=== PATIENT | female | born 1940 | race Caucasian/White ===

== ENCOUNTER 2017-11-20 18:20 | Observation (INO) | payer OTHER ==
[~2017-11-20] VITALS: Ht 167.6 cm; Wt 60.0 kg
[2017-11-20 18:44] VITALS: BP 169/82; PULSE 88; RESP 18; TEMP 98.5; O2SAT 96
[2017-11-20] MEDS ORDERED: SODIUM CHLOR 0.9% 1000 ML INJ 1,000 ML IV ONE (19:04)
--- NOTE | 2017-11-20 19:05 | PD ---
HPI Chief Complaint: Dizziness Time Seen by Provider: 18:57 Travel History International Travel<30 days: No Contact w/Intl Traveler<30days: No Traveled to known affect area: No History of Present Illness HPI 77-year-old female with no significant medical history presents to emergency department today for evaluation of acute onset dizziness, sensation like room spinning with associated headache that began at 3 PM today. Patient states since then any positional changes produce significant dizziness. At times she feels as though she may pass out. She states her headache began mild in the temporal region but has now extended across the frontal region of her head. She has been nauseous with position changes. Denies any other focal deficits or weakness. Patient denies any recent traumas. She has no other symptoms to report at this time. [facility] Past Medical History Cardiovascular Problems: Yes Hypertension: Yes Past Surgical History Other Surgery: Yes (cyst removal from wrist) Social History Alcohol Use: Yes Tobacco Use: No Substance Use: No Allergies-Medications (Allergen,Severity, Reaction): Coded Allergies: aspirin (Verified Allergy, Intermediate, 11/20/17) Reported Meds & Prescriptions Reported Meds & Active Scripts Active Active Prescriptions or Reported Medications Unobtainable Review of Systems Except as stated in HPI: all other systems reviewed are Neg Physical Exam Narrative GENERAL: Well-nourished elderly female patient, lying in bed in no acute distress. SKIN: Focused skin assessment warm/dry. HEAD: Atraumatic. Normocephalic. EYES: Pupils equal and round. No scleral icterus. No injection or drainage. ENT: No nasal bleeding or discharge. Mucous membranes pink and moist. NECK: Trachea midline. No JVD. CARDIOVASCULAR: Regular rate and rhythm. RESPIRATORY: No accessory muscle use. Clear to auscultation. Breath sounds equal bilaterally. GASTROINTESTINAL: Abdomen soft, non-tender, nondistended. Hepatic and splenic margins not palpable. MUSCULOSKELETAL: No obvious deformities. No clubbing. No cyanosis. No edema. NEUROLOGICAL: Awake and alert. No obvious cranial nerve deficits. Motor grossly within normal limits. Normal speech. PSYCHIATRIC: Appropriate mood and affect; insight and judgment normal. Data Data Last Documented VS Vital Signs Date Time Temp Pulse Resp B/P (MAP) Pulse Ox O2 Delivery O2 Flow Rate FiO2 11/20/17 21:19 100 18 163/92 (115) 11/20/17 18:44 98.5 96 Room Air Orders Orders Electrocardiogram (11/20/17 19:04) Complete Blood Count With Diff (11/20/17 19:04) Comprehensive Metabolic Panel (11/20/17 19:04) Ckmb (Isoenzyme) Profile (11/20/17 19:04) Troponin I (11/20/17 19:04) Act Partial Throm Time (Ptt) (11/20/17 19:04) Prothrombin Time / Inr (Pt) (11/20/17 19:04) Urinalysis - C+S If Indicated (11/20/17 19:04) Chest, Single Ap (11/20/17 19:04) Ct Brain W/O Iv Contrast(Rout) (11/20/17 19:04) Ecg Monitoring (11/20/17 19:) Iv Access Insert/Monitor (11/20/17 19:04) Oximetry (11/20/17 19:04) Sodium Chloride 0.9% Flush (Ns Flush) (11/20/17 19:15) Sodium Chlor 0.9% 1000 Ml Inj (Ns 1000 M (11/20/17 19:04) Urine Culture (11/20/17 19:26) Ceftriaxone Inj (Rocephin Inj) (11/20/17 20:15) Orthostatic Vital Signs (11/20/17 20:16) Labs Laboratory Tests Test 11/20/17 19:26 White Blood Count 4.5 TH/MM3 Red Blood Count 3.87 MIL/MM3 Hemoglobin 13.5 GM/DL Hematocrit 40.8 % Mean Corpuscular Volume 105.5 FL Mean Corpuscular Hemoglobin 35.0 PG Mean Corpuscular Hemoglobin Concent 33.2 % Red Cell Distribution Width 14.3 % Platelet Count 192 TH/MM3 Mean Platelet Volume 8.1 FL Neutrophils (%) (Auto) 75.9 % Lymphocytes (%) (Auto) 15.3 % Monocytes (%) (Auto) 7.4 % Eosinophils (%) (Auto) 0.9 % Basophils (%) (Auto) 0.5 % Neutrophils # (Auto) 3.4 TH/MM3 Lymphocytes # (Auto) 0.7 TH/MM3 Monocytes # (Auto) 0.3 TH/MM3 Eosinophils # (Auto) 0.0 TH/MM3 Basophils # (Auto) 0.0 TH/MM3 CBC Comment DIFF FINAL Differential Comment Prothrombin Time 9.8 SEC Prothromb Time International Ratio 1.0 RATIO Activated Partial Thromboplast Time 20.5 SEC Urine Color DARK-YELLOW Urine Turbidity HAZY Urine pH 6.0 Urine Specific [place] 1.019 Urine Protein 30 mg/dL Urine Glucose (UA) NEG mg/dL Urine Ketones NEG mg/dL Urine Occult Blood NEG Urine Nitrite POS Urine Bilirubin NEG Urine Urobilinogen LESS THAN 2.0 MG/DL Urine Leukocyte Esterase LARGE Urine RBC 10 /hpf Urine WBC /hpf Urine WBC Clumps MOD Urine Squamous Epithelial Cells 5 /hpf Urine Bacteria FEW /hpf Urine Hyaline Casts 24 /lpf Urine Mucus FEW /lpf Microscopic Urinalysis Comment CULTURE INDICATED Blood Urea Nitrogen 11 MG/DL Creatinine 0.75 MG/DL Random Glucose 114 MG/DL Total Protein 6.3 GM/DL Albumin 2.8 GM/DL Calcium Level 9.0 MG/DL Alkaline Phosphatase 121 U/L Aspartate Amino Transf (AST/SGOT) 59 U/L Alanine Aminotransferase (ALT/SGPT) 47 U/L Total Bilirubin 0.3 MG/DL Sodium Level 145 MEQ/L Potassium Level 3.4 MEQ/L Chloride Level 106 MEQ/L Carbon Dioxide Level 30.9 MEQ/L Anion Gap 8 MEQ/L Estimat Glomerular Filtration Rate 75 ML/MIN Total Creatine Kinase 23 U/L Troponin I LESS THAN 0.02 NG/ML MDM Medical Decision Making Medical Screen Exam Complete: Yes Emergency Medical Condition: Yes Medical Record Reviewed: Yes Differential Diagnosis Near syncope versus syncope versus urosepsis versus TIA versus CVA versus electrolyte abnormality Narrative Course 77-year-old female presents to emergency department for evaluation of acute onset dizziness today. Patient appears without distress. Neuro exam is nonfocal. However any position changes elicits significant dizziness and nausea. EKG is reviewed by my attending physician without acute concern. Laboratory Tests Test 11/20/17 19:26 White Blood Count 4.5 TH/MM3 Red Blood Count 3.87 MIL/MM3 Hemoglobin 13.5 GM/DL Hematocrit 40.8 % Mean Corpuscular Volume 105.5 FL Mean Corpuscular Hemoglobin 35.0 PG Mean Corpuscular Hemoglobin Concent 33.2 % Red Cell Distribution Width 14.3 % Platelet Count 192 TH/MM3 Mean Platelet Volume 8.1 FL Neutrophils (%) (Auto) 75.9 % Lymphocytes (%) (Auto) 15.3 % Monocytes (%) (Auto) 7.4 % Eosinophils (%) (Auto) 0.9 % Basophils (%) (Auto) 0.5 % Neutrophils # (Auto) 3.4 TH/MM3 Lymphocytes # (Auto) 0.7 TH/MM3 Monocytes # (Auto) 0.3 TH/MM3 Eosinophils # (Auto) 0.0 TH/MM3 Basophils # (Auto) 0.0 TH/MM3 CBC Comment DIFF FINAL Differential Comment Prothrombin Time 9.8 SEC Prothromb Time International Ratio 1.0 RATIO Activated Partial Thromboplast Time 20.5 SEC Urine Color DARK-YELLOW Urine Turbidity HAZY Urine pH 6.0 Urine Specific [place] 1.019 Urine Protein 30 mg/dL Urine Glucose (UA) NEG mg/dL Urine Ketones NEG mg/dL Urine Occult Blood NEG Urine Nitrite POS Urine Bilirubin NEG Urine Urobilinogen LESS THAN 2.0 MG/DL Urine Leukocyte Esterase LARGE Urine RBC 10 /hpf Urine WBC /hpf Urine WBC Clumps MOD Urine Squamous Epithelial Cells 5 /hpf Urine Bacteria FEW /hpf Urine Hyaline Casts 24 /lpf Urine Mucus FEW /lpf Microscopic Urinalysis Comment CULTURE INDICATED Blood Urea Nitrogen 11 MG/DL Creatinine 0.75 MG/DL Random Glucose 114 MG/DL Total Protein 6.3 GM/DL Albumin 2.8 GM/DL Calcium Level 9.0 MG/DL Alkaline Phosphatase 121 U/L Aspartate Amino Transf (AST/SGOT) 59 U/L Alanine Aminotransferase (ALT/SGPT) 47 U/L Total Bilirubin 0.3 MG/DL Sodium Level 145 MEQ/L Potassium Level 3.4 MEQ/L Chloride Level 106 MEQ/L Carbon Dioxide Level 30.9 MEQ/L Anion Gap 8 MEQ/L Estimat Glomerular Filtration Rate 75 ML/MIN Total Creatine Kinase 23 U/L Troponin I LESS THAN 0.02 NG/ML Patient is given 1 g Rocephin for UTI. Last Impressions Head CT 11/20/171903 Signed Impressions: Service Date/Time: Monday, November 20, 2017 19:54 - CONCLUSION: Slight atrophic and small vessel ischemic changes without any evidence for acute hemorrhage or mass effect. Maxx Balbuena MD Chest X-Ray 11/20/171903 Signed Impressions: Service Date/Time: Monday, November 20, 2017 19:26 - CONCLUSION: No acute cardiopulmonary disease. Maxx Balbuena MD Orthostatic vital signs are attempted however difficult to be completed by nursing staff due to patient's significant dizziness with positional changes. I discussed the patient my attending who agrees with the patient would benefit from observation admission. Diagnosis Primary Impression: Near syncope Additional Impressions: Dizziness UTI (urinary tract infection) Qualified Codes: N30.00 - Acute cystitis without hematuria Admitting Information Admitting Physician Requests: Observation Scripts Unable to Obtain Active Prescriptions or Reported Meds Condition: Stable Lisa Alvarez Nov 20, 2017 19:05
[2017-11-20] MEDS ORDERED: SODIUM CHLORIDE 0.9% FLUSH 10 ML FLUSH IVF PRN (19:15)
[2017-11-20 19:47] LABS: AUTOMATED NEUTROPHIL # 3.4 TH/MM3 (1.8-7.7); BASOPHIL % 0.5 % (0.0-2.0); EOSINOPHIL % 0.9 % (0.0-4.0); HEMATOCRIT 40.8 % (35.0-46.0); HEMOGLOBIN 13.5 GM/DL (11.6-15.3); LYMPH % 15.3 % (9.0-44.0); LYMPHOCYTE # 0.7 TH/MM3 (1.0-4.8); MEAN CELL VOLUME 105.5 FL (80.0-100.0); MEAN CORPUSCULAR HGB CONC 33.2 % (32.0-36.0); MEAN PLATELET VOLUME 8.1 FL (7.0-11.0); MONO % 7.4 % (0.0-8.0); MONOCYTE # 0.3 TH/MM3 (0-0.9); NEUT % 75.9 % (16.0-70.0); PLATELET COUNT 192 TH/MM3 (150-450); RED BLOOD COUNT 3.87 MIL/MM3 (4.00-5.30); RED CELL DISTRIBUTION WIDTH 14.3 % (11.6-17.2); WHITE BLOOD COUNT 4.5 TH/MM3 (4.0-11.0)
[2017-11-20 19:51] LABS: BACTERIA, URINE FEW /hpf; BILIRUBIN, URINE NEG (NEG); BLOOD, URINE NEG (NEG); GLUCOSE,URINE NEG (NEG); HYALINE CAST, URINE 24 /lpf (RARE); KETONE, URINE NEG (NEG); MUCUS URINE FEW /lpf (OCC); NITRITE,URINE POS (NEG); SQUAMOUS EPITHELIAL CELL URINE 5 /hpf (0-5); URINE COLOR DARK-YELLOW (YELLW/STRAW); URINE LEUKOCYTE ESTERASE LARGE (NEG); WHITE BLOOD CELL CLUMPS MOD
--- NOTE | 2017-11-20 19:51 | RADRPT ---
EXAM DATE/TIME: 11/20/2017 19:26 [facility] COMPARISON: No previous studies available for comparison. INDICATIONS : Weakness. Short of breath. MEDICAL HISTORY : None. SURGICAL HISTORY : None. ENCOUNTER: Initial ACUITY: 1 day PAIN SCORE: 0/10 LOCATION: Bilateral chest FINDINGS: The lungs are clear without infiltrate, nodule, or mass. There is no appreciable pleural effusion fo r technique. Heart and mediastinum are unremarkable. There are atherosclerotic calcifications of the aorta due to chronic atherosclerotic disease. CONCLUSION: No acute cardiopulmonary disease. Maxx Balbuena MD on November 20, 2017 at 19:48 Board Certified Radiologist. This report was verified electronically.
[2017-11-20 20:08] LABS: PROTHROMBIN TIME - PATIENT 9.8 SEC (9.8-11.6)
--- NOTE | 2017-11-20 20:10 | RADRPT ---
EXAM DATE/TIME: 11/20/2017 19:54 [facility] COMPARISON: No previous studies available for comparison. INDICATIONS : Dizziness. RADIATION DOSE: 33.78 CTDIvol (mGy) MEDICAL HISTORY : Hypertension. SURGICAL HISTORY : None. ENCOUNTER: Initial ACUITY: 1 day PAIN SCALE: 0/10 LOCATION: cranial TECHNIQUE: Multiple contiguous axial images were obtained of the head. Using automated exposure control and adj ustment of the mA and/or kV according to patient size, radiation dose was kept as low as reasonably a chievable to obtain optimal diagnostic quality images. DICOM format image data is available electro nically for review and comparison. FINDINGS: There is no evidence for intracranial hemorrhage, mass effect, mass lesions, or edema. The visualize d bony structures appear intact. Slight degree of brain atrophy is seen. Slight periventricular whit e matter changes are seen nonspecific mostly consistent with chronic small vessel ischemic changes. There are no signs of acute infarction for technique. CONCLUSION: Slight atrophic and small vessel ischemic changes without any evidence for acute hemorrhage or mass effect. Maxx Balbuena MD on November 20, 2017 at 20:06 Board Certified Radiologist. This report was verified electronically.
[2017-11-20] MEDS ORDERED: cefTRIAXone INJ 1,000 MG in SODIUM CHLORIDE 0.9% INJ 100 ML IV ONE (20:15)
[2017-11-20 20:22] LABS: ALBUMIN 2.8 GM/DL (3.4-5.0); AST (GOT) 59 U/L (15-37); BICARBONATE 30.9 MEQ/L (21.0-32.0); BLOOD UREA NITROGEN 11 MG/DL (7-18); CHLORIDE 106 MEQ/L (98-107); CREATININE 0.75 MG/DL (0.50-1.00); GLOMERULAR FILTRATION RATE 75 ML/MIN (>89); GLUCOSE,RANDOM 114 MG/DL (74-106); SODIUM (NA) 145 MEQ/L (136-145)
[2017-11-20 20:27] LABS: ALKALINE PHOSPHATASE 121 U/L (45-117); ALT (GPT) 47 U/L (10-53); TOTAL BILIRUBIN ADULT 0.3 MG/DL (0.2-1.0); TOTAL PROTEIN 6.3 GM/DL (6.4-8.2); TROPONIN I LESS THAN 0.02 NG/ML (0.02-0.05)
[2017-11-20 21:18] VITALS: BP 176/78; RESP 18
[2017-11-20 21:19] VITALS: BP_SYST 163; BP_SYST 186; BP_DIAS 100; BP_DIAS 92; RESP 18
[2017-11-20] MEDS ORDERED: SODIUM CHLORIDE 0.9% FLUSH 10 ML FLUSH IV FLUSH PRN (22:00)
[2017-11-20] MEDS ORDERED: POTASSIUM CHLORIDE 20 MEQ CONTROLLED RELEASE TAB PO ONE (22:00)
--- NOTE | 2017-11-20 22:34 | HHI.HP ---
[facility] No Primary Care Physician Admission Diagnosis Near syncope; UTI Diagnoses: Travel History International Travel<30 Days: No Contact w/Intl Traveler <30 Da: No Traveled to Known Affected Are: No History of Present Illness 77-year-old female with no significant past medical history presents to the emergency department for evaluation of dizziness and near syncopal event. The patient reports at 3 PM she was lying on the couch reading when she started to feel dizzy. She describes sensation as if her body was spinning. She denies any room spinning sensations. She got up from the couch and attempted to walk when she almost fainted and fell into the wall. She has never had symptoms like this before. Her dizziness persists. Orthostatic vital signs unremarkable. Head CT negative for acute intracranial process. Laboratory values unremarkable. UA consistent with UTI. Denies fever/chills, dysuria. Review of Systems Denies fever or chills Denies blurry vision, otorrhea, rhinorrhea Denies sore throat and cough No chest pain, palpitations, shortness of breath No abdominal pain Denies constipation/diarrhea/nausea/vomiting Denies muscle pain/weakness No rashes Past Family Social History Past Medical History None Past Surgical History Right wrist cyst removal Reported Medications Reported Meds & Active Scripts Active Active Prescriptions or Reported Medications Unobtainable Allergies: Coded Allergies: aspirin (Verified Allergy, Intermediate, 11/20/17) Family History Father of [place] at age 77 Social History Quit tobacco 8 years ago. Drinks one glass of annamarie nightly. Denies illicit drugs. Physical Exam Vital Signs Vital Signs Date Time Temp Pulse Resp B/P (MAP) Pulse Ox O2 Delivery O2 Flow Rate FiO2 11/20/17 21:19 100 18 163/92 (115) 11/20/17 21:19 95 18 186/100 (128) 11/20/17 21:18 89 18 176/78 (110) 11/20/17 18:44 98.5 88 18 169/82 (111) 96 Room Air Physical Exam GENERAL: female lying in bed SKIN: No rashes, ecchymoses or lesions. Cool and dry. HEAD: Atraumatic. Normocephalic. No temporal or scalp tenderness. EYES: Pupils equal round and reactive. Extraocular motions intact. No scleral icterus. No injection or drainage. No nystagmus. ENT: Nose without bleeding, purulent drainage or septal hematoma. Throat without erythema, tonsillar hypertrophy or exudate. Uvula midline. Airway patent. NECK: Trachea midline. No JVD or lymphadenopathy. Supple, nontender, no meningeal signs. CARDIOVASCULAR: Regular rate and rhythm without murmurs, gallops, or rubs. RESPIRATORY: Clear to auscultation. Breath sounds equal bilaterally. No wheezes , rales, or rhonchi. GASTROINTESTINAL: Abdomen soft, non-tender, nondistended. No hepato-splenomegaly , or palpable masses. No guarding. MUSCULOSKELETAL: Extremities without clubbing, cyanosis, or edema. No joint tenderness, effusion, or edema noted. No calf tenderness. NEUROLOGICAL: Awake and alert. Cranial nerves II through XII intact. Motor and sensory grossly within normal limits. Normal speech. Laboratory Laboratory Tests Test 11/20/17 19:26 White Blood Count 4.5 Red Blood Count 3.87 Hemoglobin 13.5 Hematocrit 40.8 Mean Corpuscular Volume 105.5 Mean Corpuscular Hemoglobin 35.0 Mean Corpuscular Hemoglobin Concent 33.2 Red Cell Distribution Width 14.3 Platelet Count 192 Mean Platelet Volume 8.1 Neutrophils (%) (Auto) 75.9 Lymphocytes (%) (Auto) 15.3 Monocytes (%) (Auto) 7.4 Eosinophils (%) (Auto) 0.9 Basophils (%) (Auto) 0.5 Neutrophils # (Auto) 3.4 Lymphocytes # (Auto) 0.7 Monocytes # (Auto) 0.3 Eosinophils # (Auto) 0.0 Basophils # (Auto) 0.0 CBC Comment DIFF FINAL Differential Comment Prothrombin Time 9.8 Prothromb Time International Ratio 1.0 Activated Partial Thromboplast Time 20.5 Urine Color DARK-YELLOW Urine Turbidity HAZY Urine pH 6.0 Urine Specific [place] 1.019 Urine Protein 30 Urine Glucose (UA) NEG Urine Ketones NEG Urine Occult Blood NEG Urine Nitrite POS Urine Bilirubin NEG Urine Urobilinogen LESS THAN 2.0 Urine Leukocyte Esterase LARGE Urine RBC 10 Urine WBC Urine WBC Clumps MOD Urine Squamous Epithelial Cells 5 Urine Bacteria FEW Urine Hyaline Casts 24 Urine Mucus FEW Microscopic Urinalysis Comment CULTURE INDICATED Blood Urea Nitrogen 11 Creatinine 0.75 Random Glucose 114 Total Protein 6.3 Albumin 2.8 Calcium Level 9.0 Alkaline Phosphatase 121 Aspartate Amino Transf (AST/SGOT) 59 Alanine Aminotransferase (ALT/SGPT) 47 Total Bilirubin 0.3 Sodium Level 145 Potassium Level 3.4 Chloride Level 106 Carbon Dioxide Level 30.9 Anion Gap 8 Estimat Glomerular Filtration Rate 75 Total Creatine Kinase 23 Troponin I LESS THAN 0.02 Date/Time Source Procedure Growth Status 11/20/17 19:26 Urine Clean Catch Urine Culture Pending Received Result Diagram: 11/20/17192511/20/171925 Caprini VTE Risk Assessment Caprini VTE Risk Assessment: Mod/High Risk (score >= 2) Caprini Risk Assessment Model Point Value = 1 Point Value = 2 Point Value = 3 Point Value = 5 Age 41-60 Minor surgery BMI > 25 kg/m2 Swollen legs Varicose veins or History of unexplained or recurrent spontaneous Oral contraceptives or hormone replacement Sepsis (< 1 month) Serious lung disease, including pneumonia (< 1 month) Abnormal pulmonary function Acute myocardial infarction Congestive heart failure (< 1 month) History of inflammatory bowel disease Medical patient at bed rest Age 61-74 Arthroscopic surgery Major open surgery (> 45 min) Laparoscopic surgery (> 45 min) Malignancy Confined to bed (> 72 hours) Immobilizing plaster cast Central venous access Age >= 75 History of VTE Family history of VTE Factor V Leiden Prothrombin [id number] Lupus anticoagulant Anticardiolipin antibodies Elevated serum homocysteine Heparin-induced thrombocytopenia Other congenital or acquired thrombophilia Stroke (< 1 month) Elective arthroplasty Hip, pelvis, or leg fracture Acute spinal cord injury (< 1 month) Prophylaxis Regimen Total Risk Factor Score Risk Level Prophylaxis Regimen 0-1 Low Early ambulation 2 Moderate Order ONE of the following: *Sequential Compression Device (SCD) *Heparin 5000 units SQ BID 3-4 Higher Order ONE of the following medications: *Heparin 5000 units SQ TID *Enoxaparin/Lovenox 40 mg SQ daily (WT < 150 kg, CrCl > 30 mL/min) *Enoxaparin/Lovenox 30 mg SQ daily (WT < 150 kg, CrCl > 10-29 mL/min) *Enoxaparin/Lovenox 30 mg SQ BID (WT < 150 kg, CrCl > 30 mL/min) AND/OR *Sequential Compression Device (SCD) 5 or more Highest Order ONE of the following medications: *Heparin 5000 units SQ TID (Preferred with Epidurals) *Enoxaparin/Lovenox 40 mg SQ daily (WT < 150 kg, CrCl > 30 mL/min) *Enoxaparin/Lovenox 30 mg SQ daily (WT < 150 kg, CrCl > 10-29 mL/min) *Enoxaparin/Lovenox 30 mg SQ BID (WT < 150 kg, CrCl > 30 mL/min) AND *Sequential Compression Device (SCD) Assessment and Plan Assessment and Plan Assessment/plan: 1. Near syncope Orthostatic vital signs within normal limits Carotid ultrasound/Echo pending May be 2/2 dizziness 2. Dizziness Unclear etiology Head CT negative Trial of meclazine 3. UTI UA with few bacteria, moderate to be BC clumps, large leukoesterase and positive nitrates Rocephin Urine culture pending 4. Hypokalemia Status post by mouth supplementation Follow [facility] Heart healthy diet Electrolytes: as above Heparin Rachelle Underwood MD Nov 20, 2017 22:34
[2017-11-20] MEDS: MECLIZINE HCL 25 MG TAB PO SCH (22:58)
--- NOTE | 2017-11-20 23:09 | RADRPT ---
EXAM DATE/TIME: 11/20/2017 22:35 [facility] COMPARISON: No previous studies available for comparison. INDICATIONS : Syncope. MEDICAL HISTORY : Hypertension. SURGICAL HISTORY : Right wrist cyst removal. ENCOUNTER: Initial ACUITY: 1 day PAIN SCORE: 0/10 LOCATION: Bilateral neck PEAK SYSTOLIC VELOCITIES (cm/sec): ICA/CCA RATIO: Right: 1.5 Left: 1.9 ICA: Right: 114 Left: 126 CCA: Right: 78 Left: 66 ECA: Right: 103 Left: 88 VERTEBRAL: Right: 45 antegrade Left: 91 antegrade Elevated flow velocities and ICA/CCA ratios have been found to correlate with increased degrees of vessel stenosis, calculated as percentage of diameter relative to a normal segment of distal ICA/CCA FINDINGS: RIGHT CAROTID: Calcified plaque involving the origin of the ICA and ECA. Less than 50% narrowing of the ICA origin u tilizing grayscale analysis. The waveforms are within normal limits. LEFT CAROTID: Calcified plaque involving the origin of the ICA and ECA. Less than 50% narrowing of the ICA origin u tilizing grayscale analysis. The waveforms are within normal limits. VERTEBRAL ARTERIES: Antegrade flow is seen in both vertebral arteries. MISCELLANEOUS: None. CONCLUSION: 1. Calcified plaque with less than 50% stenoses in both ICAs. 2. Antegrade flow involving both vertebral arteries. Immanuel Simmons Jr., MD on November 20, 2017 at 23:04 Board Certified Radiologist. This report was verified electronically.
[2017-11-20 23:38] VITALS: BP 138/74; PULSE 83; RESP 18; TEMP 98; O2SAT 95
[2017-11-20 23:52] VITALS: PULSE 84
[2017-11-21] VITALS (9 sets, daily range): BP systolic 153–188; BP diastolic 83–99; PULSE 66–89; RESP 15–18; TEMP 95.3–98.3; O2SAT 94–96
[2017-11-21] MEDS ORDERED: ACETAMINOPHEN 325 MG TAB PO PRN (01:15)
[2017-11-21] MEDS ORDERED: ACETAMINOPHEN/HYDROcodone 325 MG/5 MG TAB PO PRN (01:15)
[2017-11-21] MEDS: MECLIZINE HCL 25 MG TAB PO SCH ×3 (06:39→21:49)
[2017-11-21 08:39] LABS: BICARBONATE 25.4 MEQ/L (21.0-32.0); CREATININE 0.49 MG/DL (0.50-1.00)
[2017-11-21 08:56] LABS: AUTOMATED NEUTROPHIL # 1.6 TH/MM3 (1.8-7.7); BASOPHIL % 0.5 % (0.0-2.0); EOSINOPHIL # 0.1 TH/MM3 (0-0.4); EOSINOPHIL % 2.5 % (0.0-4.0); HEMOGLOBIN 11.9 GM/DL (11.6-15.3); LYMPH % 22.3 % (9.0-44.0); LYMPHOCYTE # 0.6 TH/MM3 (1.0-4.8); MEAN CELL VOLUME 105.3 FL (80.0-100.0); MEAN CORPUSCULAR HGB CONC 33.2 % (32.0-36.0); MEAN PLATELET VOLUME 8.5 FL (7.0-11.0); MONO % 14.6 % (0.0-8.0); MONOCYTE # 0.4 TH/MM3 (0-0.9); NEUT % 60.1 % (16.0-70.0); PLATELET COUNT 140 TH/MM3 (150-450); RED BLOOD COUNT 3.42 MIL/MM3 (4.00-5.30); RED CELL DISTRIBUTION WIDTH 14.7 % (11.6-17.2); WHITE BLOOD COUNT 2.7 TH/MM3 (4.0-11.0)
[2017-11-21] MEDS: HEPARIN SODIUM - SQ 10,000 UNITS/ML VIAL SQ SCH ×2 (10:40→21:51)
[2017-11-21] MEDS: SODIUM CHLORIDE 0.9% FLUSH 10 ML FLUSH IV FLUSH SCH ×2 (10:40→21:50)
--- NOTE | 2017-11-21 11:52 | HHI.PR ---
Subjective Remarks in no acute distress. still with some dizziness. denies chest pain or sob. awaiting PT evaluation. Objective Vitals Vital Signs Date Time Temp Pulse Resp B/P (MAP) Pulse Ox O2 Delivery O2 Flow Rate FiO2 11/21/17 08:40 66 11/21/17 08:01 95.9 70 15 188/88 (121) 11/21/17 04:22 97.9 75 18 177/93 (121) 94 11/21/17 04:00 78 11/20/17 23:52 84 11/20/17 23:38 98.0 83 18 138/74 (95) 95 11/20/17 23:12 11/20/17 21:19 100 18 163/92 (115) 11/20/17 21:19 95 18 186/100 (128) 11/20/17 21:18 89 18 176/78 (110) 11/20/17 18:44 98.5 88 18 169/82 (111) 96 Room Air I/O 11/20/17 11/20/17 11/20/17 11/21/17 11/21/17 11/21/17 07:00 15:00 23:00 07:00 15:00 23:00 Intake Total 1100 ml Balance 1100 ml Intake IV Total 1100 ml Result Diagram: 11/21/17 0735 11/21/1735 Imaging Last Impressions Head CT 11/20/171903 Signed Impressions: Service Date/Time: Monday, November 20, 2017 19:54 - CONCLUSION: Slight atrophic and small vessel ischemic changes without any evidence for acute hemorrhage or mass effect. Maxx Balbuena MD Chest X-Ray 11/20/171903 Signed Impressions: Service Date/Time: Monday, November 20, 2017 19:26 - CONCLUSION: No acute cardiopulmonary disease. Maxx Balbuena MD Carotid Artery Ultrasound 11/20/17 0000 Signed Impressions: Service Date/Time: Monday, November 20, 2017 22:35 - CONCLUSION: 1. Calcified plaque with less than 50%% stenoses in both ICAs. 2. Antegrade flow involving both vertebral arteries. Immanuel Simmons Jr., MD Objective Remarks GENERAL: This is a well-nourished, well-developed patient, in no apparent distress. CARDIOVASCULAR: Regular rate and regular rhythm without murmurs, gallops, or rubs. RESPIRATORY: Clear to auscultation. Breath sounds equal bilaterally. No wheezes , rales, or rhonchi. GASTROINTESTINAL: Abdomen soft, non-tender, nondistended. Normal, active bowel sounds MUSCULOSKELETAL: Extremities without clubbing, cyanosis, or edema. NEURO: Alert & Oriented x4 to person, place, time, situation. Moves all ext x4 Medications and IVs Inpatient Medications Acetaminophen (Tylenol) 650 mg Q4H PRN PO headache/fever/pain1-4 Last administered on 11/21/17at 01:50; Start 11/21/17 at 01:15 Acetaminophen/ Hydrocodone Bitart ([place] 5-325 Mg) 1 tab Q6H PRN PO pain scale 5-10; Start 11/21/17 at 01:15 Ceftriaxone Sodium 1000 mg/ Sodium Chloride 100 ml @ 200 mls/hr Q24H IV ; Start 11/21/17 at 20:00 Heparin Sodium (Porcine) (Heparin Inj) 5,000 units Q12HR SQ Last administered on 11/21/17at 10:40; Start 11/21/17 at 09:00 Meclizine HCl (Antivert) 25 mg Q8HR PO Last administered on 11/21/17at 06:39; Start 11/20/17 at 22:30 Potassium Chloride (KCl) 40 meq ONCE ONCE PO Last administered on 11/20/17at 22: 58; Start 11/20/17 at 22:00; Stop 11/20/17 at 22:03; Status DC Sodium Chloride (NS Flush) 2 ml BID IV FLUSH Last administered on 11/21/17at 10: 40; Start 11/21/17 at 09:00 A/P Assessment and Plan 1. Near syncope Orthostatic vital signs within normal limits Carotid ultrasound with no significant stenosis/Echo pending May be 2/2 dizziness 2. Dizziness Unclear etiology Head CT negative Trial of meclizine consulted PT 3. UTI UA with few bacteria, moderate to be BC clumps, large leukoesterase and positive nitrates Rocephin Urine culture pending 4. Hypokalemia-replaced. FEN Heart healthy diet Electrolytes: as above Heparin Discharge Planning dc home-likely tomorrow- pending echo and PT recommendations. Sybil Anderson MD Nov 21, 2017 11:52
[2017-11-21] MEDS: cefTRIAXone INJ 1,000 MG in SODIUM CHLORIDE 0.9% INJ 100 ML IV SCH (21:50)
[2017-11-22] VITALS (9 sets, daily range): BP systolic 101–194; BP diastolic 57–101; PULSE 80–98; RESP 15–18; TEMP 95.5–97.9; O2SAT 94–98
[2017-11-22] MEDS ORDERED: ENALAPRILAT 1.25 MG/ML VIAL IV PUSH ONE (05:30)
[2017-11-22] MEDS: MECLIZINE HCL 25 MG TAB PO SCH ×3 (06:11→20:51)
[2017-11-22] MEDS: SODIUM CHLORIDE 0.9% FLUSH 10 ML FLUSH IV FLUSH SCH ×2 (09:00→21:36)
[2017-11-22] MEDS: LISINOPRIL 5 MG TAB PO SCH (09:42)
[2017-11-22] MEDS: HEPARIN SODIUM - SQ 10,000 UNITS/ML VIAL SQ SCH ×2 (09:42→20:51)
[2017-11-22] MEDS ORDERED: NIFEdipine 30 MG SUSTAINED RELEASE TAB PO ONE (11:00)
--- NOTE | 2017-11-22 11:02 | HHI.PR ---
Subjective Remarks in no acute distress. dizziness has much improved. denies chest pain or sob. BP trend noted. wants to go home today. Objective Vitals Vital Signs Date Time Temp Pulse Resp B/P (MAP) Pulse Ox O2 Delivery O2 Flow Rate FiO2 11/22/17 08:38 96.7 97 15 172/101 (124) 96 11/22/17 05:48 95 11/22/17 03:43 97.9 80 18 179/100 (126) 94 11/21/17 23:01 98.3 89 18 183/99 (127) 96 182/94 (123) 11/21/17 16:33 96.3 79 18 153/83 (106) 94 11/21/17 16:20 88 11/21/17 12:32 95.3 77 18 176/89 (118) 96 11/21/17 12:05 86 Result Diagram: 11/21/17 0735 11/21/17 0735 Imaging Last Impressions Head CT 11/20/171903 Signed Impressions: Service Date/Time: Monday, November 20, 2017 19:54 - CONCLUSION: Slight atrophic and small vessel ischemic changes without any evidence for acute hemorrhage or mass effect. Maxx Balbuena MD Chest X-Ray 11/20/171903 Signed Impressions: Service Date/Time: Monday, November 20, 2017 19:26 - CONCLUSION: No acute cardiopulmonary disease. Maxx Balbuena MD Carotid Artery Ultrasound 11/20/17 0000 Signed Impressions: Service Date/Time: Monday, November 20, 2017 22:35 - CONCLUSION: 1. Calcified plaque with less than 50%% stenoses in both ICAs. 2. Antegrade flow involving both vertebral arteries. Immanuel Simmons Jr., MD Objective Remarks GENERAL: This is a well-nourished, well-developed patient, in no apparent distress. CARDIOVASCULAR: Regular rate and regular rhythm without murmurs, gallops, or rubs. RESPIRATORY: Clear to auscultation. Breath sounds equal bilaterally. No wheezes , rales, or rhonchi. GASTROINTESTINAL: Abdomen soft, non-tender, nondistended. Normal, active bowel sounds MUSCULOSKELETAL: Extremities without clubbing, cyanosis, or edema. NEURO: Alert & Oriented x4 to person, place, time, situation. Moves all ext x4 Medications and IVs Inpatient Medications Acetaminophen (Tylenol) 650 mg Q4H PRN PO headache/fever/pain1-4 Last administered on 11/21/17at 01:50; Start 11/21/17 at 01:15 Acetaminophen/ Hydrocodone Bitart ([place] 5-325 Mg) 1 tab Q6H PRN PO pain scale 5-10; Start 11/21/17 at 01:15 Ceftriaxone Sodium 1000 mg/ Sodium Chloride 100 ml @ 200 mls/hr Q24H IV Last administered on 11/21/17at 21:50; Start 11/21/17 at 20:00 Enalaprilat (Vasotec Inj) 1.25 mg ONCE ONCE IV PUSH Last administered on at 06:10; Start 11/22/17 at 05:30; Stop 11/22/17 at 05:31; Status DC Heparin Sodium (Porcine) (Heparin Inj) 5,000 units Q12HR SQ Last administered on 11/22/17at 09:42; Start 11/21/17 at 09:00 Lisinopril (Prinivil) 5 mg DAILY PO Last administered on 11/22/17at 09:42; Start 11/22/17 at 09:00 Meclizine HCl (Antivert) 25 mg Q8HR PO Last administered on 11/22/17at 06:11; Start 11/20/17 at 22:30 Potassium Chloride (KCl) 40 meq ONCE ONCE PO Last administered on 11/20/17at 22: 58; Start 11/20/17 at 22:00; Stop 11/20/17 at 22:03; Status DC Sodium Chloride (NS Flush) 2 ml BID IV FLUSH Last administered on 11/21/17at 21: 50; Start 11/21/17 at 09:00 A/P Assessment and Plan 1. Near syncope Orthostatic vital signs within normal limits Carotid ultrasound with no significant stenosis/Echo pending May be 2/2 dizziness 2. Dizziness- improved. Head CT negative Trial of meclizine consulted PT 3. UTI UA with few bacteria, moderate to be BC clumps, large leukoesterase and positive nitrates Rocephin Urine culture with Klebsiella 4. Hypokalemia-replaced. FEN Heart healthy diet Electrolytes: as above Heparin Discharge Planning dc home-likely later today if BP better - pending echo. case management for C. Sybil Anderson MD Nov 22, 2017 11:02
[2017-11-22] MEDS ORDERED: GETGO ROLLING W1 MI1 (11:03)
--- NOTE | 2017-11-22 11:04 | HHI.FF ---
Face to Face Verification Diagnosis: (1) Dizziness (2) Near syncope Physical Therapy Order: Evaluate and Treat Home Health Nursing Order: Medical education Signs/symptoms of disease process Medication education-adverse effect Nursing assessment with vital signs I have seen patient Airam Saxena on 11/22/17. My clinical findings support the need for the requested home health care services because: Ltd mobility - disease progression I certify that my clinical findings support that this patient is homebound because: Unsteady gait/balance Sybil Anderson MD Nov 22, 2017 11:03
[2017-11-22] MEDS ORDERED: LISI10TA3 PO (11:06)
[2017-11-22] MEDS ORDERED: CIPR250T52 PO (11:06)
[2017-11-22] MEDS ORDERED: MECL1TAB42 PO (11:06)
--- NOTE | 2017-11-22 16:12 | ECHRPT ---
Indication: syncope CONCLUSIONS Normal left ventricular size. The left ventricular systolic function is low normal with an estimated ejection fraction in the rang e of 50- 55%. Mild mitral valve regurgitation. Aortic valve sclerosis is present. There is mild tricuspid valve regurgitation. The estimated pulmonary arterial pressure is 33 mmHg. BP: / HR: Rhythm: MEASUREMENTS (Male / Female) Normal Values Technical Quality:Good 2D ECHO LV Diastolic Diameter PLAX 3.4 cm 4.2 - 5.9 / 3.9 - 5.3 cm LV Systolic Diameter PLAX 2.6 cm IVS Diastolic Thickness 1.3 cm 0.6 - 1.0 / 0.6 - 0.9 cm LVPW Diastolic Thickness 0.9 cm 0.6 - 1.0 / 0.6 - 0.9 cm LV Relative Wall Thickness 0.6 RV Internal Dim ED PLAX 2.7 cm M-MODE Aortic Root Diameter MM 3.0 cm LA Systolic Diameter MM 3.0 cm LA Ao Ratio MM 1.0 AV Cusp Separation MM 1.6 cm DOPPLER Mitral E Point Velocity 41.0 cm/s Mitral A Point Velocity 82.9 cm/s Mitral E to A Ratio 0.5 LV E' Lateral Velocity 6.6 cm/s Mitral E to LV E' Lateral Ratio 6.2 LV E' Septal Velocity 6.2 cm/s Mitral E to LV E' Septal Ratio 6.6 TR Peak Velocity 240.0 cm/s TR Peak Gradient 23.0 mmHg Right Atrial Pressure 10.0 mmHg Pulmonary Artery Systolic Pressu 33.0 mmHg Right Ventricular Systolic Press 33.0 mmHg FINDINGS LEFT VENTRICLE Normal left ventricular size. The left ventricular systolic function is low normal with an estimated ejection fraction in the rang e of 50- 55%. RIGHT VENTRICLE Normal right ventricular size and systolic function. LEFT ATRIUM The left atrial size is normal. RIGHT ATRIUM The right atrial size is normal. ATRIAL SEPTUM Normal atrial septal thickness without atrial level shunting by limited color doppler interrogation. AORTA The aortic root and proximal ascending aorta are normal in size on limited imaging. MITRAL VALVE Structurally normal mitral valve. Mild mitral valve regurgitation. AORTIC VALVE Trileaflet aortic valve. Aortic valve sclerosis is present. TRICUSPID VALVE Structurally normal tricuspid valve. There is mild tricuspid valve regurgitation. The estimated pulmonary arterial pressure is 33 mmHg. PULMONARY VALVE No pulmonary valve regurgitation or stenosis. VESSELS The inferior vena cava is normal in size. PERICARDIUM No pericardial effusion. David Simposn MD (Electronically Signed) Final Date:22 November 2017 16:10
[2017-11-22] MEDS: cefTRIAXone INJ 1,000 MG in SODIUM CHLORIDE 0.9% INJ 100 ML IV SCH (21:36)
--- NOTE | 2017-11-22 23:36 | EKG ---
Date Performed: 11/20/2017 Time Performed: 19:38:00 PTAGE: 77 years EKG: Sinus rhythm BORDERLINE LEFT AXIS DEVIATION MINIMAL ST DEPRESSION BORDERLINE ECG NO PREVIOUS TRACING DOCTOR: Felipe Kathleen Interpretating Date/Time 11/22/2017 23:35:27
[2017-11-23 00:47] VITALS: BP 119/64; PULSE 84; RESP 18; TEMP 98; O2SAT 94
[2017-11-23 04:00] VITALS: BP 127/61; PULSE 71; RESP 16; TEMP 97.7; O2SAT 97
[2017-11-23 05:43] VITALS: PULSE 77
[2017-11-23] MEDS: MECLIZINE HCL 25 MG TAB PO SCH (06:51)
[2017-11-23 08:07] VITALS: BP 114/63; PULSE 74; RESP 18; TEMP 95.9; O2SAT 93
[2017-11-23] MEDS: SODIUM CHLORIDE 0.9% FLUSH 10 ML FLUSH IV FLUSH SCH (08:57)
[2017-11-23] MEDS: HEPARIN SODIUM - SQ 10,000 UNITS/ML VIAL SQ SCH (08:58)
[2017-11-23] MEDS: LISINOPRIL 5 MG TAB PO SCH (08:58)
--- NOTE | 2017-11-23 10:44 | HHI.PR ---
Subjective Remarks in no acute distress. dizziness has almost resolved. no chest pain or sob and wants to go home. Objective Vitals Vital Signs Date Time Temp Pulse Resp B/P (MAP) Pulse Ox O2 Delivery O2 Flow Rate FiO2 11/23/17 08:07 95.9 74 18 114/63 (80) 93 11/23/17 05:43 77 11/23/17 04:00 97.7 71 16 127/61 (83) 97 11/23/17 00:47 98.0 84 18 119/64 (82) 94 11/22/17 20:00 95.9 94 17 119/62 (81) 98 11/22/17 17:45 97 11/22/17 17:44 96.2 96 15 101/64 (76) 98 11/22/17 13:49 95.5 98 18 117/57 (77) 96 11/22/17 12:51 96 I/O 11/22/17 11/22/17 11/22/17 11/23/17 11/23/17 11/23/17 07:00 15:00 23:00 07:00 15:00 23:00 Intake Total 480 ml Balance 480 ml Intake Oral 480 ml # Voids 4 # Bowel Movements 1 Result Diagram: 11/21/17 0735 11/21/17 0735 Imaging Last Impressions Head CT 11/20/171903 Signed Impressions: Service Date/Time: Monday, November 20, 2017 19:54 - CONCLUSION: Slight atrophic and small vessel ischemic changes without any evidence for acute hemorrhage or mass effect. Maxx Balbuena MD Chest X-Ray 11/20/171903 Signed Impressions: Service Date/Time: Monday, November 20, 2017 19:26 - CONCLUSION: No acute cardiopulmonary disease. Maxx Balbuena MD Carotid Artery Ultrasound 11/20/17 0000 Signed Impressions: Service Date/Time: Monday, November 20, 2017 22:35 - CONCLUSION: 1. Calcified plaque with less than 50%% stenoses in both ICAs. 2. Antegrade flow involving both vertebral arteries. Immanuel Simmons Jr., MD Objective Remarks GENERAL: This is a well-nourished, well-developed patient, in no apparent distress. CARDIOVASCULAR: Regular rate and regular rhythm without murmurs, gallops, or rubs. RESPIRATORY: Clear to auscultation. Breath sounds equal bilaterally. No wheezes , rales, or rhonchi. GASTROINTESTINAL: Abdomen soft, non-tender, nondistended. Normal, active bowel sounds MUSCULOSKELETAL: Extremities without clubbing, cyanosis, or edema. NEURO: Alert & Oriented x4 to person, place, time, situation. Moves all ext x4 Medications and IVs Inpatient Medications Acetaminophen (Tylenol) 650 mg Q4H PRN PO headache/fever/pain1-4 Last administered on 11/21/17 01:50; Start 11/21/17 at 01:15 Acetaminophen/ Hydrocodone Bitart ([place] 5-325 Mg) 1 tab Q6H PRN PO pain scale 5-10; Start 11/21/17 at 01:15 Ceftriaxone Sodium 1000 mg/ Sodium Chloride 100 ml @ 200 mls/hr Q24H IV Last administered on 11/22/17 21:36; Start 11/21/17 at 20:00 Enalaprilat (Vasotec Inj) 1.25 mg ONCE ONCE IV PUSH Last administered on 06:10; Start 11/22/17 at 05:30; Stop 11/22/17 at 05:31; Status DC Heparin Sodium (Porcine) (Heparin Inj) 5,000 units Q12HR SQ Last administered on 11/23/17 08:58; Start 11/21/17 at 09:00 Lisinopril (Prinivil) 5 mg DAILY PO Last administered on 11/23/17 08:58; Start 11/22/17 at 09:00 Meclizine HCl (Antivert) 25 mg Q8HR PO Last administered on 11/23/17 06:51; Start 11/20/17 at 22:30 Nifedipine (Procardia Xl) 30 mg ONCE ONCE PO Last administered on 11/22/17 11: 14; Start 11/22/17 at 11:00; Stop 11/22/17 at 11:06; Status DC Potassium Chloride (KCl) 40 meq ONCE ONCE PO Last administered on 11/20/17at 22: 58; Start 11/20/17 at 22:00; Stop 11/20/17 at 22:03; Status DC Sodium Chloride (NS Flush) 2 ml BID IV FLUSH Last administered on 11/23/17 08: 57; Start 11/21/17 at 09:00 A/P Assessment and Plan 1. Near syncope Orthostatic vital signs within normal limits Carotid ultrasound with no significant stenosis/Echo with EF 50%. May be 2/2 dizziness 2. Dizziness- almost resolved. Head CT negative Trial of meclizine consulted PT 3. UTI UA with few bacteria, moderate to be BC clumps, large leukoesterase and positive nitrates Rocephin; will switch to po cipro. Urine culture with Klebsiella 4. Hypokalemia-replaced. FEN Heart healthy diet Electrolytes: as above Heparin Discharge Planning dc home today. see med list. f/u; pcp. Sybil Anderson MD Nov 23, 2017 10:44
--- NOTE | 2017-11-23 10:47 | HHI.DS ---
Discharge Summary Admission Date Nov 20, 2017 at 21:49 Discharge Date: Nov 23, 2017 Admitting Diagnosis Near syncope; UTI (1) Near syncope ICD Code: R55 - Syncope and collapse Diagnosis: Principal Status: Acute (2) UTI (urinary tract infection) ICD Code: N39.0 - Urinary tract infection, site not specified Diagnosis: Secondary Status: Acute (3) Dizziness ICD Code: R42 - Dizziness and giddiness Diagnosis: Principal Status: Acute Procedures none Brief History - From Admission 77-year-old female with no significant past medical history presents to the emergency department for evaluation of dizziness and near syncopal event. The patient reports at 3 PM she was lying on the couch reading when she started to feel dizzy. She describes sensation as if her body was spinning. She denies any room spinning sensations. She got up from the couch and attempted to walk when she almost fainted and fell into the wall. She has never had symptoms like this before. Her dizziness persists. Orthostatic vital signs unremarkable. Head CT negative for acute intracranial process. Laboratory values unremarkable. UA consistent with UTI. Denies fever/chills, dysuria. CBC/BMP: 11/21/17 0735 11/21/17 0735 Significant Findings Laboratory Tests Test 11/20/17 19:26 11/21/17 07:35 Red Blood Count 3.87 MIL/MM3 (4.00-5.30) 3.42 MIL/MM3 (4.00-5.30) Mean Corpuscular Volume 105.5 FL (80.0-100.0) 105.3 FL (80.0-100.0) Mean Corpuscular Hemoglobin 35.0 PG (27.0-34.0) 35.0 PG (27.0-34.0) Neutrophils (%) (Auto) 75.9 % (16.0-70.0) Lymphocytes # (Auto) 0.7 TH/MM3 (1.0-4.8) 0.6 TH/MM3 (1.0-4.8) Activated Partial Thromboplast Time 20.5 SEC (24.3-30.1) Urine Color DARK-YELLOW (YELLW/STRAW) Urine Turbidity HAZY (CLEAR) Urine Protein 30 mg/dL (NEG-TRACE) Urine Nitrite POS (NEG) Urine Leukocyte Esterase LARGE (NEG) Urine RBC 10 /hpf (0-3) Urine WBC Clumps MOD (NONE) Urine Bacteria FEW /hpf (NONE) Urine Mucus FEW /lpf (OCC) Random Glucose 114 MG/DL (74-106) Total Protein 6.3 GM/DL (6.4-8.2) Albumin 2.8 GM/DL (3.4-5.0) Alkaline Phosphatase 121 U/L (45-117) Aspartate Amino Transf (AST/SGOT) 59 U/L (15-37) Potassium Level 3.4 MEQ/L (3.5-5.1) Estimat Glomerular Filtration Rate 75 ML/MIN (>89) Total Creatine Kinase 23 U/L (26-192) Troponin I LESS THAN 0.02 NG/ML White Blood Count 2.7 TH/MM3 (4.0-11.0) Platelet Count 140 TH/MM3 (150-450) Monocytes (%) (Auto) 14.6 % (0.0-8.0) Neutrophils # (Auto) 1.6 TH/MM3 (1.8-7.7) Creatinine 0.49 MG/DL (0.50-1.00) Calcium Level 8.0 MG/DL (8.5-10.1) Sodium Level 146 MEQ/L (136-145) Chloride Level 111 MEQ/L (98-107) Imaging Last Impressions Head CT 11/20/171903 Signed Impressions: Service Date/Time: Monday, November 20, 2017 19:54 - CONCLUSION: Slight atrophic and small vessel ischemic changes without any evidence for acute hemorrhage or mass effect. Maxx Balbuena MD Chest X-Ray 11/20/171903 Signed Impressions: Service Date/Time: Monday, November 20, 2017 19:26 - CONCLUSION: No acute cardiopulmonary disease. Maxx Balbuena MD Carotid Artery Ultrasound 11/20/17 0000 Signed Impressions: Service Date/Time: Monday, November 20, 2017 22:35 - CONCLUSION: 1. Calcified plaque with less than 50%% stenoses in both ICAs. 2. Antegrade flow involving both vertebral arteries. Immanuel Simmons Jr., MD PE at Discharge GENERAL: This is a well-nourished, well-developed patient, in no apparent distress. CARDIOVASCULAR: Regular rate and regular rhythm without murmurs, gallops, or rubs. RESPIRATORY: Clear to auscultation. Breath sounds equal bilaterally. No wheezes , rales, or rhonchi. GASTROINTESTINAL: Abdomen soft, non-tender, nondistended. Normal, active bowel sounds MUSCULOSKELETAL: Extremities without clubbing, cyanosis, or edema. NEURO: Alert & Oriented x4 to person, place, time, situation. Moves all ext x4 Hospital Course patient was admitted with dizziness. she was also found to have hypertension and UTI. imaging studies as noted above. she was seen by PT . her dizziness much improved and she was started on lisinopril. UTI was treated with antibiotic. she will be discharged home with [facility]. Pt Condition on Discharge: Fair Discharge Disposition: Disch w/ Home Health Serv Discharge Time: <= 30 minutes Discharge Instructions DIET: Follow Instructions for: Heart Healthy Diet Activities you can perform: See Additionl Instruction Other Activity Instructions: per PT recommendations Follow up Referrals: PCP Follow-up - 2-3 Days New Medications: Ciprofloxacin (Cipro) 250 Mg Tab 250 MG PO BID for Infection for 3 Days, #6 TAB 0 Refills Lisinopril (Lisinopril) 10 Mg Tab 10 MG PO DAILY, #30 TAB 0 Refills Walker Rolling/GetGo (Walker Rolling/GetGo) 1 Mis Mis EA .ROUTE DIRECTED, #1 Meclizine HCl (Meclizine 25) 25 Mg Tab 25 MG PO Q8HR PRN for DIZZINESS, #15 TAB Sybil Anderson MD Nov 23, 2017 10:46
== END 2017-11-23 15:15 | disposition home or self-care (01) ==
LOC: NEPD 18:20 → NEDA 21:49 → NEPGCP 22:35
PROVIDERS: ADMIT Internal Medicine; ATTEND Internal Medicine
DX: R55 Syncope and collapse (principal); N39.0 Urinary tract infection, site not specified; B96.20 Unspecified Escherichia coli [E. coli] as the cause of diseases classified elsewhere; R51 Headache; R11.0 Nausea; I10 Essential (primary) hypertension; E87.6 Hypokalemia; Z87.891 Personal history of nicotine dependence
CPT/HCPCS: 70450; 71045; 80048; 80053; 81001; 82550; 84484; 85025; 85610; 85730; 87077; 87086; 87186; 93005; 93306; 93880; 96361; 96365; 96366; 96372; 96375; 97116; 97162; 99285; G0378; G8987; G8988; J0696; J1644; J7030